=== PATIENT | male | born 1980 | race Caucasian/White ===

== ENCOUNTER 2018-06-06 18:47 | Emergency (ER) | payer SELFPAY, OTHER ==
[2018-06-06] MEDS: SODIUM CHLORIDE 0.9% 1L IRRIG IRR (19:09)
[2018-06-06] MEDS: TETRACAINE 0.5% 4 ML OPH BOTH EYES (19:09)
[2018-06-06] MEDS: HYDROmorphONE 2 MG/ML SYG IV ×2 (19:51→20:26)
[2018-06-06] MEDS: DIPHTH/TET/ACEL PERTUSS (ADULT) 0.5 ML VIAL IM* (19:51)
[2018-06-06] MEDS: ONDANSETRON 4 MG INJ IV (19:51)
[2018-06-06] MEDS: IBUPROFEN 600 MG TAB PO (19:52)
[2018-06-06] MEDS: CEFTRIAXONE 1 GM/50 ML (PMX) 50 ML IVPB (19:52)
[2018-06-06 20:04] LABS: ADD MAN DIFF? NO
[2018-06-06 20:12] LABS: WHITE BLOOD COUNT 12.6 10^3/ul (4.8-10.8)
[2018-06-06 20:12] LABS: BASOPHILS % 0.2 % (0.0-2.0); EOSINOPHILS % 0.2 % (0.0-7.0); HEMATOCRIT 42.3 % (42.0-52.0); HEMOGLOBIN 14.1 g/dl (14.0-18.0); LYMPHOCYTES # 1.3 10^3/ul (0.8-2.9); LYMPHOCYTES % 10.5 % (15.0-51.0); MEAN CORPUSCULAR HEMOGLOBIN 28.2 pg (29.0-33.0); MEAN CORPUSCULAR HGB CONC 33.3 g/dl (32.0-37.0); MEAN CORPUSCULAR VOLUME 84.6 fl (82.0-101.0); MEAN PLATELET VOLUME 11.7 fl (7.4-10.4); MONOCYTE # 0.6 10^3/ul (0.3-0.9); MONOCYTES % 4.4 % (0.0-11.0); NEUTROPHIL # 10.6 10^3/ul (1.6-7.5); NEUTROPHILS % 84.3 % (39.0-77.0); PLATELET COUNT 249 10^3/UL (140-415); RED CELL DISTRIBUTION WIDTH 13.1 % (11.5-14.5)
[2018-06-06 20:19] LABS: INR 0.94; PROTIME 12.7 Sec (11.9-14.9)
[2018-06-06 20:20] LABS: PARTIAL THROMBOPLASTIN TIME 29.3 Sec (23.0-35.0)
[2018-06-06 20:23] LABS: ANION GAP 12 (5-13); BLOOD UREA NITROGEN 14 mg/dl (7-20); CALCIUM 9.7 mg/dl (8.4-10.2); CARBON DIOXIDE 25 mmol/L (21-31); CHLORIDE 104 mmol/L (97-110); CREATININE 0.94 mg/dl (0.61-1.24); Estimated GFR > 60 mL/min (>60); GLUCOSE 104 mg/dl (70-220); POTASSIUM 3.5 mmol/L (3.5-5.1); SODIUM 141 mmol/L (135-144)
[2018-06-06] MEDS: FLUORESCEIN STRIP BOTH EYES (21:09)
== END 2018-06-06 21:47 | disposition short-term general hospital (02) ==
LOC: E/R 18:47
DX: S05.02XA Injury of conjunctiva and corneal abrasion without foreign body, left eye, initial encounter (principal); S05.01XA Injury of conjunctiva and corneal abrasion without foreign body, right eye, initial encounter; H10.213 Acute toxic conjunctivitis, bilateral; T54.91XA Toxic effect of unspecified corrosive substance, accidental (unintentional), initial encounter; X58.XXXA Exposure to other specified factors, initial encounter; Z23 Encounter for immunization
CPT/HCPCS: 80048; 85025; 85610; 85730; 90471; 90715; 96374; 96375; 96376; 99285-25